=== PATIENT | male | born 1975 | race Caucasian/White ===

== ENCOUNTER 2016-11-27 18:51 | Emergency (ER) | payer SELFPAY | END 2016-11-27 22:00 | disposition left against medical advice (07) | LOC: D.ER 18:51 | DX: M54.5 Low back pain (principal) ==

== ENCOUNTER 2016-11-30 12:41 | Emergency (ER) | payer OTHER ==
[2016-11-30 15:00] LABS: APPEARANCE CLEAR (CLEAR); BILIRUBIN NEGATIVE (NEGATIVE); COLOR YELLOW (YELLOW); GLUCOSE NEGATIVE (NEGATIVE); KETONE NEGATIVE (NEGATIVE); LEUKOCYTE ESTERASE TRACE (NEGATIVE); NITRITE NEGATIVE (NEGATIVE); PROTEIN NEGATIVE (NEGATIVE); UROBILINOGEN NORMAL (NORMAL)
[2016-11-30 15:02] LABS: BACTERIA NONE SEEN /hpf (NONE SEEN); EPITHELIAL CELLS NSEEN /hpf (0-5); RED CELLS - URINE 0-5 /hpf (0-5); WHITE CELLS - URINE 0-5 /hpf (0-5)
== END 2016-11-30 21:25 | disposition home or self-care (01) ==
LOC: D.ER 12:41
PROVIDERS: Emergency Medicine
DX: M47.9 Spondylosis, unspecified (principal); M54.5 Low back pain; M54.16 Radiculopathy, lumbar region; F17.200 Nicotine dependence, unspecified, uncomplicated

== ENCOUNTER → 2017-02-02 | Emergency (ER) | payer OTHER | END | disposition home or self-care (01) | LOC: D.ER 17:45 | DX: M54.5 Low back pain (principal); S16.1XXA Strain of muscle, fascia and tendon at neck level, initial encounter; X58.XXXA Exposure to other specified factors, initial encounter; Y93.89 Activity, other specified; Y92.89 Other specified places as the place of occurrence of the external cause; M54.16 Radiculopathy, lumbar region ==

== ENCOUNTER 2017-02-14 16:24 | Emergency (ER) | payer OTHER | END 2017-02-14 19:23 | disposition home or self-care (01) | LOC: D.ER 16:24 | DX: S39.012A Strain of muscle, fascia and tendon of lower back, initial encounter (principal); M62.830 Muscle spasm of back; G89.29 Other chronic pain; M54.5 Low back pain ==

== ENCOUNTER → 2017-03-14 14:49 | Outpatient (CLI) | payer OTHER | END | disposition home or self-care (01) | LOC: D.MAMMO 09:00 | DX: N63 Unspecified lump in breast (principal) ==

== ENCOUNTER 2017-04-04 10:43 | Emergency (ER) | payer OTHER | END 2017-04-04 12:30 | disposition home or self-care (01) | LOC: D.ER 10:43 | DX: M54.5 Low back pain (principal); F17.200 Nicotine dependence, unspecified, uncomplicated ==

== ENCOUNTER 2017-07-26 12:11 | Emergency (ER) | payer OTHER | END 2017-07-26 13:50 | disposition home or self-care (01) | LOC: D.ER 12:11 | DX: M54.5 Low back pain (principal); M62.838 Other muscle spasm; F17.200 Nicotine dependence, unspecified, uncomplicated ==

== ENCOUNTER 2017-09-30 18:46 | Emergency (ER) | payer OTHER | END 2017-09-30 19:41 | disposition home or self-care (01) | LOC: D.ER 18:46 | DX: M54.5 Low back pain (principal) ==